=== PATIENT | female | born 1945 | race Caucasian/White ===

== ENCOUNTER 2018-07-09 09:11 | Emergency (ER) | payer MEDICARE ==
[~2018-07-09] VITALS: Ht 165.1 cm; Wt 46.0 kg
[2018-07-09 10:23] VITALS: BP 101/41
== END 2018-07-09 11:01 | disposition home or self-care (01) ==
LOC: ED 09:40
DX: Z00.00 Encounter for general adult medical examination without abnormal findings (principal); E11.9 Type 2 diabetes mellitus without complications; I10 Essential (primary) hypertension
CPT/HCPCS: 99283